=== PATIENT | male | born 1980 | race Two or more races ===

== ENCOUNTER 2020-01-25 05:18 | Inpatient (IN) | payer OTHER ==
[~2020-01-25] VITALS: Ht 167.6 cm; Wt 94.3 kg
[2020-01-25] VITALS (16 sets, daily range): BP systolic 63–132; BP diastolic 44–80
--- NOTE | 2020-01-25 06:38 | Anethesia Preoperative Eval ---
Anesthesia Pre-op PMH/ROS General Date of Evaluation: Jan 25, 2020 Time of Evaluation: 06:56 Anesthesiologist: Juanito ASA Score: ASA 2 Mallampati Score Class I : Soft palate, uvula, fauces, pillars visible Class II: Soft palate, uvula, fauces visible Class III: Soft palate, base of uvula visible Class IV: Only hard plate visible Mallampati Classification: Class II Surgeon: Rinku Diagnosis: Back Pain Surgical Procedure: Alif L5-S1, PSF L5-S1 Anesthesia History: none Family History: no anesthesia problems Allergies: Coded Allergies: No Known Allergies (Unverified , 01/24/20) Medications: see eMAR Patient NPO?: Yes Past Medical History Gastrointestinal/Genitourinary: Reports: other - GI Ulcer Neurologic/Psychiatric: Reports: depression/anxiety PSxH Narrative: Lipoma X 15 SX Anesthesia Pre-op Phys. Exam Physician Exam Last Vital Signs Date Time Temp Pulse Resp B/P (MAP) Pulse Ox O2 Delivery O2 Flow Rate FiO2 01/25/20 05:59 Room Air 01/25/20 05:51 98.2 71 18 132/80 (97) 98 Constitutional: NAD Neurologic: CN 2-12 intact Cardiovascular: RRR Respiratory: CTA Gastrointestinal: S/NT/ND Airway Exam Mallampati Score: Class II MO: full ROM: full Teeth: missing, intact Anesthesia Pre-op A/P Risk Assessment & Plan Assessment: ASA 2 Plan: GA, SED, GlideScope Status Change Before Surgery: No Pre-Antibiotics Dru Grams Ancef IV Given Within 1 Hr of Incision: Yes Time Given: 07:31 Cedric Solomon MD Jan 25, 2020 06:38
[2020-01-25] MEDS ORDERED: Lidocaine 1% MPF 10mg/ml 5ml ONE (06:41)
[2020-01-25] MEDS ORDERED: Sodium Chloride 10ml vial INJ ONE (06:41)
[2020-01-25] MEDS ORDERED: fentaNYL 100 mcg/2 mL IV ONE ×2 (06:42→08:33)
[2020-01-25] MEDS ORDERED: Lidocaine 1% Plain 30 ml INJ ONE ×3 (06:42→11:01)
[2020-01-25] MEDS ORDERED: Meperidine 25mg/1ml Inj (FOR RIGORS ONLY) IV PRN (06:45)
[2020-01-25] MEDS ORDERED: Midazolam 2mg/2ml Inj IVP PRN (06:45)
[2020-01-25] MEDS ORDERED: Atropine Sulfate 0.4mg/ml inj IVP PRN (06:45)
[2020-01-25] MEDS ORDERED: HYDROcodone/Acetamin 5/325 tab ORAL PRN ×2 (06:45→07:30)
[2020-01-25] MEDS ORDERED: Ketorolac 30mg Inj IV PRN ×2 (06:45)
[2020-01-25] MEDS ORDERED: HYDROcodone/Acetamin 7.5/325 tab ORAL PRN ×2 (06:45→07:30)
[2020-01-25] MEDS ORDERED: DiphenhydrAMINE 50mg/ml Inj IVP PRN (06:45)
[2020-01-25] MEDS ORDERED: LORazepam Inj 2mg/ml 1ml IV PRN (06:45)
[2020-01-25] MEDS ORDERED: fentaNYL 100 mcg/2 mL IV PRN (06:45)
[2020-01-25] MEDS ORDERED: Labetalol 5mg/ml 20ml vial IV PRN (06:45)
[2020-01-25] MEDS ORDERED: LR 1000ml 1,000 ML IVLG SCH (06:45)
[2020-01-25] MEDS ORDERED: Metoclopramide 10mg/2ml Inj IVP PRN ×2 (06:45→07:30)
[2020-01-25] MEDS ORDERED: Acetaminophen (Non formulary) 100 ML IV ONE (06:45)
[2020-01-25] MEDS ORDERED: Hydromorphone 0.5mg/0.5ml inj IVP PRN (06:45)
[2020-01-25] MEDS ORDERED: oxyCODONE HCL/Acetaminophen 5/325mg ORAL PRN (06:45)
[2020-01-25] MEDS ORDERED: EPINEPHrine 1mg/1ml Amp ONE (06:47)
[2020-01-25] MEDS ORDERED: Vancomycin 1gm vial IVPB ONE ×2 (06:47→09:45)
[2020-01-25] MEDS ORDERED: Heparin 5000 units/ml inj ONE (06:48)
[2020-01-25] MEDS ORDERED: Thrombin 5000 units TOPIC ONE (06:48)
[2020-01-25] MEDS ORDERED: Gelfoam Size TOPIC ONE ×2 (06:48→06:49)
[2020-01-25] MEDS ORDERED: Bupivacaine 0.5% Inj 30 ml vial INJ ONE (06:49)
[2020-01-25] MEDS ORDERED: Ropivacaine 5mg/ml Vial 30ml INJ ONE (06:49)
[2020-01-25] MEDS ORDERED: Bacitracin 50000 Units Vial ONE (06:49)
[2020-01-25] MEDS ORDERED: ceFAZolin sod 1 GM in NS 55 ML IVPB ONE (07:00)
[2020-01-25] MEDS ORDERED: NS Irrig 1000ml ONE (07:00)
[2020-01-25] MEDS ORDERED: Sterile Water Irrig 1000ml IRRIG ONE (07:00)
[2020-01-25] MEDS ORDERED: propofoL 1,000mg/100ml IV ONE (07:00)
[2020-01-25] MEDS ORDERED: LR 1000ml ONE (07:00)
[2020-01-25] MEDS ORDERED: Rocuronium Bromide 50mg/5ml Inj IV ONE (07:00)
[2020-01-25] MEDS ORDERED: Neostigmine 1mg/ml 10ml Inj ONE (07:00)
--- NOTE | 2020-01-25 07:23 | Pre-Procedure Note/Attestation ---
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 I attest that, if there was a reasonable possibility of needing a blood transfusion, the patient (or the patient's legal employee representative) was given the [place] [employer] [facility] standardized written summary, pursuant to the [place] Blood Safety Act ([place] Health and Safety Code # 1645, as amended). I attest that I re-evaluated the patient just prior to the surgery and that th ere has been no change in the patient's H&P, except as documented below: Murray Dobbs MD Jan 25, 2020 07:23
--- NOTE | 2020-01-25 07:25 | Brief Operative Note ---
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
[2020-01-25] MEDS ORDERED: Naloxone 0.4mg/ml Inj IVP PRN (07:30)
[2020-01-25] MEDS ORDERED: Morphine Sulfate 4mg/ml Inj (IV USE ONLY) IV PRN ×2 (07:30)
[2020-01-25] MEDS ORDERED: Morphine Sulfate 2mg/ml Inj(IV/IM USE ONLY) IV PRN (07:30)
[2020-01-25] MEDS ORDERED: HYDROmorphone 1mg/ml Carpuject IVP PRN (07:30)
[2020-01-25] MEDS ORDERED: Chloraseptic Spray 20mL Bottle ORAL PRN (07:30)
[2020-01-25] MEDS ORDERED: Milk of Magnesia 30ml Ud ORAL PRN (07:30)
[2020-01-25] MEDS ORDERED: Glycopyrrolate 0.2mg/ml 1ml Vial ONE (10:27)
--- NOTE | 2020-01-25 10:30 | Consultation ---
DATE OF CONSULTATION: 01/25/2020 VASCULAR SURGERY CONSULTATION CONSULTING PHYSICIAN: Saud Lu MD BRIEF SUMMARY: The patient is a 40-year-old male, who was admitted to undergo anterior lumbar interbody fusion of L5-S1 as determined by his spine surgeon, Dr. Murray Dobbs. Prior to today, the patient had received at his home my separate informed consent form, which was translated in Portuguese as well, which introduced me and explained my role in the approach for the anterior lumbar spine surgery. It also outlined the possible risks and complications including, but not limited to hemorrhage, need for blood transfusions, retrograde ejaculation, wound infection, bowel or ureter injury, arterial or venous injury or thrombosis, and the remote chance of , etc. The patient read the form, signed it, and brought it back to the hospital with him today. In addition, I telephoned the patient and briefly discussed the procedure with him. Today, he was seen in the preoperative holding area where the contents of the form were reviewed and any questions were answered. He was shown the site of the incision. He had palpable bilateral dorsalis pedis pulses. He was 5 feet 6 inches tall, weighing approximately 208 pounds giving him a BMI of 34. That consent was signed once again with a nurse witness and signature as well and then placed into the chart. He fully understood and wished to proceed. There were no contraindications and we would proceed with the proposed operation. Saud Lu M.D. DR: Naz JOB#: [id number] CC:
--- NOTE | 2020-01-25 10:45 | Operative Note - Dictated ---
DATE OF OPERATION: 01/25/2020 OPERATION: Muscle-sparing anterior abdominal retroperitoneal approach for anterior lumbar interbody fusion. CO-SURGEONS: Saud Lu MD, and Murray Dobbs MD ANESTHESIA: General. PREOPERATIVE DIAGNOSIS: Herniated disc with spondylolysis, L5-S1. POSTOPERATIVE DIAGNOSIS: Herniated disc with spondylolysis, L5-S1. DESCRIPTION OF PROCEDURE: Prior to surgery, the patient had received at his home my separate informed consent form, which was translated in Cameroonian as well, which introduced me and explained my role in the approach for the anterior lumbar spine surgery. It also outlined the possible risks and complications including, but not limited to hemorrhage, need for blood transfusions, retrograde ejaculation, wound infection, bowel or ureter injury, arterial or venous injury or thrombosis, and the remote chance of , etc. The patient read the form, signed it, and brought it back to the hospital with him today. In addition, I telephoned the patient where the procedure was discussed. Today, he was seen in the preoperative holding area where the contents of the form were reviewed and any questions were answered. He was shown the site of the incision. He had palpable bilateral dorsalis pedis pulses. That consent was signed once again with a nurse witness and signature as well and then placed into the chart. He fully understood and wished to proceed. A preoperative vascular surgery consultation report was dictated. The patient was taken into the operating room and placed in supine position. Using an endotracheal tube, he was placed under general anesthesia without difficulty. Abdomen was prepped and draped in the usual sterile manner. An appropriate time-out was obtained. A transverse incision was made in the left lower quadrant from the midline and carried down through the subcutaneous tissues down to the rectus fascia. Hemostasis was achieved using electrocautery. The rectus fascia was incised transversely and elevated off the anterior surface of the muscle for a distance of approximately 4 cm both caudad and cephalad. This would allow for retraction of the rectus muscle laterally later in the case in order to obtain direct anterior-posterior approach to the anterior surface of the spine. The inferior epigastric vessels were identified and preserved. Laterally, the retroperitoneal space was entered down to the left psoas muscle. The left ureter was identified and protected throughout the case. Several self-retaining retractors such as the Norma and Bookwalter were utilized to hold the abdominal wall and peritoneal contents in place while further dissection was carried out. Careful blunt dissection was carried out below the bifurcation of the iliac vessels with several medial branches of the iliac vein were taken between Hemoclips and transected. The middle sacral artery was taken between Hemoclips and transected. Careful blunt dissection was carried out to preserve the sympathetic chains laterally as well as the parasympathetic plexus, which lies anteriorly along the surface of the fifth lumbar vertebra. Further careful blunt dissection was utilized to expose the anterior surface of the multiple vertebral bodies and intervening disc space. Several retractor blades were now placed in all quadrants with the rectus muscle now retracted laterally, which allowed exposure and direct anterior-posterior approach to the anterior surface of the spine. The spine surgeon then proceeded to perform discectomy and fusion, which would be dictated in a separate report by the spine surgeon, Dr. Dobbs. Antibiotic irrigation had been carried out. Vancomycin powder was left in the wound. The integrity of the iliac vessels were then checked to make sure that there was no tear or thrombosis of the vein and that there was adequate flow through the artery with no evidence of spasm or thrombosis. A further check for hemostasis was made and the integrity of the ureter was verified. The peritoneum was allowed to return to its anatomical location and the anterior rectus sheath approximated using continuous running suture of #1 Vicryl. The subcutaneous tissues were irrigated using dilute Betadine solution as well as antibiotic solution and hemostasis noted to be achieved. Vancomycin powder was left in the wound. Plastic closure repair of the abdominal wound was continued using 2-0 Vicryl followed by skin approximation using continuous subcuticular suture of 4-0 Monocryl. Steri-Strips were applied. Dry sterile gauze and OpSite dressings were applied. The sponge, pad, needle, and instrument counts reported as correct. Estimated blood loss was less than 50 mL. There were no complications during this part of the procedure. At completion of this part of the procedure, the patient had maintenance of palpable bilateral dorsalis pedis pulses and the pulse oximeter registered 100% on the left foot. The patient will remain in the operating room to undergo posterior instrumentation by the spine surgeon. Saud Lu M.D. DR: Naz JOB#: [id number] CC:
[2020-01-25] MEDS ORDERED: Naloxone 0.4mg/ml Inj ONE (12:35)
--- NOTE | 2020-01-25 13:21 | Immediate Post-Op Evaluation ---
Immediate Post-Op Evalulation Immediate Post-Op Evalulation Procedure: Alif L5-S1, PSF L5-S1 Date of Evaluation: Jan 25, 2020 Time of Evaluation: 13:32 IV Fluids: 1100 Blood Products: 0 Estimated Blood Loss: 100 Urinary Output: 200 Blood Pressure Systolic: 107 Blood Pressure Diastolic: 72 Pulse Rate: 89 Respiratory Rate: 16 O2 Sat by Pulse Oximetry: 99 Temperature (Fahrenheit): 98.8 Pain Score (1-10): 2 Nausea: No Vomiting: No Complications 0 Patient Status: awake, reacts, patent, extubated, none Hydration Status: adequate Dru Grams Ancef IV Given Within 1 Hr of Incision: Yes Time Given: 07:31 Cedric Solomon MD Jan 25, 2020 13:21
--- NOTE | 2020-01-25 16:01 | Diagnostic Imaging Report ---
INDICATION: Pain, intraoperative follow back pain TECHNIQUE: Intraoperative imaging Fluoroscopy time: 1:15 seconds Total dose: 1.23 mGym2 Total number of images: 7 COMPARISON: None FINDINGS: Intraoperative images demonstrate a surgical tube projected at the level of the L5-S1 disc. Subsequent images document placement of anterior fusion hardware and posterior fusion hardware at this level. IMPRESSION: Intraoperative imaging, as described
[2020-01-25] MEDS: NS w/KCl 20mEq 1000ml 1,000 ML IV SCH (18:08)
[2020-01-25] MEDS: Docusate 100mg cap ORAL SCH (18:08)
[2020-01-25] MEDS: ceFAZolin sod 1 GM in D5W 55 ML IV SCH (18:08)
[2020-01-25] MEDS: HYDROcodone/Acetamin 7.5/325 tab ORAL PRN (20:12)
--- NOTE | 2020-01-25 22:15 | Operative Note - Dictated ---
DATE OF OPERATION: 01/25/2020 Stage 1 of 2. SURGEON: Murray Dobbs MD, Orthopaedic Spine Surgeon EXPOSURE SURGEON: Saud Lu MD ANESTHESIA: General endotracheal anesthesia. PREOPERATIVE DIAGNOSES: 1. Intractable back pain. 2. Intractable leg pain. 3. Worsening radiculopathy. 4. Weakness. 5. Herniated nucleus pulposus, L5-S1 herniation. 6. Neural foraminal stenosis, L5-S1 herniation. POSTOPERATIVE DIAGNOSES: 1. Intractable back pain. 2. Intractable leg pain. 3. Worsening radiculopathy. 4. Weakness. 5. Herniated nucleus pulposus, L5-S1 herniation. 6. Neural foraminal stenosis, L5-S1 herniation. PROCEDURES PERFORMED: 1. Radical anterior lumbar intervertebral L5-S1 discectomy. 2. Anterior lumbar interbody fusion using 8-degree PEEK cage size Nuvasive Brigade 14 mm and medium bone morphogenetic protein with 5 mL of allograft Aitkin putty and 8 mL of tisseal. 3. Anterior lumbar plating and fixation at L5-S1 using 4 screws of 25 mm length. 4. Anterior retroperitoneal exposure. 5. Supervision and interpretation of intraoperative fluoroscopy. 6. Supervision and interpretation of somatosensory-evoked potential and free running EMG monitoring. ESTIMATED BLOOD LOSS: mL COMPLICATIONS: None. INDICATIONS FOR THE PROCEDURE: The patient is a 40-year-old male who presents for intractable back pain and radiculopathy which is well documented in our clinical chart and records. We had a long discussion with Blayne regarding definitive surgical treatment options. We had a long discussion with the patient regarding the risks, alternatives, and benefits of procedure. Our description of the risks included a discussion in person as well as a signed consent which detailed all pertinent risks and the procedure itself. Briefly, our discussion included but was not limited to infection, bleeding, pseudarthrosis, spinal cord injury, neurovascular injury, dural tear, CSF leak, neuropathy, paralysis, permanent weakness/drop foot, paresthesias, blindness, palsy and weakness. The patient understood there may be a need for revision surgery or additional procedures. Approach-related complications including dysphonia, dysphagia, blindness, permanent vocal cord and neural injury, hematoma, swallowing and breathing difficulty; medical complications including liver, kidney, shock, and cardiopulmonary failure; anesthesia complications including , swelling, damage to the musculature, larynx , esophagus, trachea, blood vessels and muscles and lungs during this surgical procedure. Injury to deeper structures may be temporary or permanent. The patient understood these and elected to proceed. A written and verbal consent was given. We discussed the pros and cons of all the alternatives. We discussed the uncertainties associated with the decision. Afterwards I assessed the patients understanding and explored their preferences. All questions were answered and no guarantees were given. Medical clearance was obtained prior to surgery. INTRAOPERATIVE FINDINGS: At L5-S1, there was a tear and the disc herniation along the posterior aspect of the PLL, which was noted to on stage 1 anterior part of the procedure. This was noted after resection of the anterior portion of the disc. The disc itself was still spongy with appropriate disc height. There was no desiccation of the disc nor crumbled nature of the disc whatsoever. I appreciated no significant bone spurs anteriorly. Upon visualization of the posterior longitudinal ligament, there was a tear in the PLL on the right side of the neural foramina. The tear was approximately 15 degrees cephalad to caudad. This was mobilized with a Microsect 1 B curette and I noted there to be nuclear herniated fragments which were protruding posteriorly on the neural foramina predominantly on the right side. DESCRIPTION OF PROCEDURE: Under the benefit of general endotracheal anesthesia and with the assistance of the entire operative team, the patient was moved from the rde young onto the operative table in the supine position on a radiolucent frame. The head was secured and positioned appropriately. Bilateral arms were secured with Gel Pads and foam and all bony prominences were padded. The bilateral lower extremity SCD and LIOR hose were placed for DVT prophylaxis. A surgical timeout was called which corroborated our planned procedure. Preoperative antibiotics were administered within 30 minutes of the incision for prophylaxis. Using lateral radiography, the operative levels were delineated. An incision was marked based on our interpretation of lateral radiography and afterwards the body was prepped and draped in the usual sterile manner. The family was notified that we were ready to commence surgery and were called in the waiting room hourly for updates. An incision was based on our lateral fluoroscopic image to center the incision at the L5-S1 interspace. The wound was prepped and draped in the usual sterile fashion. Using a scalpel, a standard retroperitoneal exposure was performed by our vascular surgeon Dr. Saud Lu and this is delineated in a separate operative note. After appropriate exposure at the L5-S1 disc space, we next turned our attention towards our radical discectomy. This was performed in standard fashion first beginning with a gentle mobilization of all superficial soft tissue overlying the disc space with Kittners. After this was performed we marked our midline and confirmed our disc space on AP and lateral fluoroscopy. Next, using a 10 blade long-handled scalpel, the disc was resected from the endplates in a box discectomy technique. Next using Tate elevators the disc was mobilized off each endplate. After this, using a large Leksell rongeurs, the entire disc was removed from the intervertebral space. All residual disc and cartilagenous endplates were resected using a combination of small and medium curettage, pituitaries, size 4 and size 6 Kerrison rongeurs. Next, the endplates were distracted in a parallel fashion using the Walter hot baller and a 7.5 Thandle. At this point the PLL was resected using a small curette and a Kerrison 4 rongeur. Next the endplates were resected down to bleeding subchondral bone using a ring and box curette. For any residual bleeding which we encountered at this point, this was maintained and controlled with a combination of FloSeal, Gelfoam and bipolar cautery. Afterwards, Tisseel was used to seal the discectomy site dorsally. Next I then trialed the interspace for height, width and depth. This was confirmed on fluoroscopy and, once satisfied with our fit, we loaded and inserted an 8-degree PEEK cage size Nuvasive Brigade 14 mm with bone morphogenetic protein and with allograft [place] bone under AP and lateral fluoroscopy. AP and lateral fluoroscopy confirmed excellent placement at the L5-S1 interspace. Afterwards, we turned our attention towards plating from the Nuvasive Brigade Interlock system. This anterior lumbar plating and fixation at L5-S1 using 4 screws of 25 mm length. Final radiographs confirmed appropriate placement of all hardware, screws and our PEEK cages along with a baptist of the lumbar lordosis. Afterwards, Tisseel was used to seal the discectomy site ventrally. FloSeal and Zosyn antibiotics were placed directly on the anterior fusion site. The wounds were copiously irrigated with antibiotic impregnated saline. Afterwards, FloSeal was placed to address residual bleeding. Powdered antibiotics were directly poured into the wound to provide for direct antibiosis. Next, I turned my attention to closure. Fascial closure was performed with 1-0 Vicryl suture. Subcutaneous tissues were reapproximated with 2-0 Vicryl. The superficial subcutaneous skin was closed with a running Monocryl and Dermabond. Dressings consisted of Tegaderm and 4 x 4 gauze. The patient tolerated the procedure well and after discussion with our vascular surgeon and our anesthesiologist, we made the determination to proceed with stage 2 of 2 our posterior based approach. The details of stage 1 of the surgery were related to the patients family/representatives upon the conclusion of the procedure in the family waiting room. Stage 2 of 2. SURGEON: Murray Dobbs MD, Orthopaedic Spine Surgeon. EXPOSURE SURGEON: Saud Lu MD BENEFITS REPRESENTATIVE SURGEON: Saud Lu MD ANESTHESIA: General endotracheal anesthesia. PREOPERATIVE DIAGNOSES: 1. Intractable back pain. 2. Intractable leg pain. 3. Worsening radiculopathy. 4. Weakness. 5. Herniated nucleus pulposus, L5-S1 herniation. 6. Neural foraminal stenosis, L5-S1. POSTOPERATIVE DIAGNOSES: 1. Intractable back pain. 2. Intractable leg pain. 3. Worsening radiculopathy. 4. Weakness. 5. Herniated nucleus pulposus, L5-S1 herniation. 6. Neural foraminal stenosis, L5-S1. PROCEDURES PERFORMED: 1. Bilateral Torres laminectomy/Nava-Hooks osteotomy, and complete facetectomy at L5-S1. 2. L5-S1 posterolateral fusion using allograft bone, local autograft, and residual bone morphogenetic protein. 3. Percutaneous pedicle screw fixation using Synthes Emergent pedicle screws, size 40 mm x 6 mm, a total of 4 used the pedicle of L5 bilaterally and S1 bilaterally. 4. Confirmation of pedicle screws placement using neural monitoring. 5. Use of intraoperative microscope. 6. Supervision and interpretation of intraoperative fluoroscopy. 7. Supervision and interpretation of somatosensory-evoked potential and free running EMG monitoring. 8. Duraplasty L5S1 ESTIMATED BLOOD LOSS: mL COMPLICATIONS: None. This now delineates the second stage of the procedure. INTRAOPERATIVE FINDINGS: At L5, there was bilateral pars fracture. The pars fractures did not appear chronic. There were fresh sharp edges of the pars fracture, which made it difficult to resect given the sharp edges and their proximity to the nerves and thecal sac. This was resected without issue. However on resection of the spinous process itself, it appeared somewhat adhered to the thecal sac and on vertical removal, a small incidental 2 mm durotomy was noted. This was repaired with TF 4 Nurolon suture in a standard fashion with approximately 3 stitches and DuraGen afterwards without any untoward complications. DESCRIPTION OF PROCEDURE: Under the benefit of general endotracheal anesthesia and with the assistance of the entire operative team, the patient was moved from the radiolucent operative table in the prone position onto a Beny frame. The head was secured and positioned appropriately. Bilateral arms were secured with Gel Pads and foam and all bony prominences were padded. The bilateral lower extremity SCD and LIOR hose we replaced for DVT prophylaxis. A surgical timeout was called which corroborated our planned procedure. Preoperative antibiotics were administered within 30 minutes of the incision for prophylaxis. Using lateral radiography, the operative levels were delineated. An incision was marked based on our interpretation of anterior posterior and lateral radiography and afterwards the body was prepped and draped in the usual sterile manner. The family was notified that we were ready to commence surgery and were called in the waiting room hourly for updates. An incision was based on our anterior posterior and lateral fluoroscopic image to center the incision at the L5-S1 interspace. The wound was prepped and draped in the usual sterile fashion. Using a scalpel, a midline incision was made and the subcutaneous tissue was mobilized so that within the fascia two Qamar based incisions were made bilaterally focusing on his pedicle at L5-S1 through a percutaneous stab wound approach. All pedicles were cannulated in the exact same fashion for each level. This was performed in the following manner. The second incision was made slightly off midline and geared towards his L5-S1 interspace approached. Using Jamshidi needles under direct AP and lateral fluoroscopic visualization I approached the L5-S1 pedicles with Jamshidi needles making sure to leave clearance along the medial pedicle boundary/wall, and next we advanced our bilateral pedicle screw entry points under AP and lateral fluoroscopy at both our pedicles bilaterally. Next, percutaneous screws were loaded bilaterally. Screws were inserted in percutaneous fashion and afterwards these screws were stimulated. Next, a kilo was lordosed and placed percutaneously through the incision. Next, we turned our attention to our Naav-Hooks type osteotomy, facetectomy and decompression. This was performed at each level in the exact same fashion. Based on AP and lateral fluoroscopy, we centered this incision over the facet joints at L5 of the contralateral side. This was taken down through the skin and subcutaneous tissues until the overlying pars facet joints of L5-S1 were visualized under microscopic visualization. There was severe pressure on this neural foramina as palpated with the Slayden dental and a [place]chola ball probe. The pars was then visualized on the contralateral side and this was carefully resected along with the lamina and superior articular process using a Midas Gil AM8 drill bit. This was completely resected using a Nava-Hooks type osteotomy and medial laminar removal and facetectomy. At L5, there was bilateral pars fracture. The pars fractures did not appear chronic. There were fresh sharp edges of the pars fracture, which made it difficult to resect given the sharp edges and their proximity to the nerves and thecal sac. This was resected without issue. However on resection of the spinous process itself, it appeared somewhat adhered to the thecal sac and on vertical removal, a small incidental 2 mm durotomy was noted. This was repaired with TF 4 Nurolon suture in a standard fashion with approximately 3 stitches and DuraGen afterwards without any untoward complications. There was a significant amount of bleeding which we encountered at this point and this was maintained and controlled with a combination of FloSeal, Gelfoam and bipolar cautery. After complete resection of the facet joints, we noticed the lateral thecal sac margin and the relief of pressure off the neural elements . Next, I turned my attention to the stimulation of pedicle screws. All pedicle screws were stimulated with somatosensory evoked potentials ranging over 20 milliampere with no response. Afterwards percutaneous rods from the Synthes Emergent pedicle screw system were inserted and placed percutaneously and locking caps were placed. Final radiographs confirmed appropriate placement of all hardware, screws and our PEEK cages along with a baptist of the lumbar lordosis. The wounds were copiously irrigated with antibiotic impregnated saline. Afterwards, FloSeal was placed to address residual bleeding. Powdered antibiotics were directly poured into the wound to provide for direct antibiosis. Next I turned my attention to closure. Fascial closure was performed with 1-0 Vicryl suture. Subcutaneous tissues were reapproximated with 2-0 Vicryl. The superficial subcutaneous skin was closed with a running Monocryl and Dermabond. Dressings consisted of Tegaderm and 4 x 4 gauze. The patient tolerated the procedure well and will now be admitted to the spine floor for further observation. The details of the entire surgery were related to the patients family/representatives upon the conclusion of the procedure in the family waiting room. Murray Dobbs M.D. DR: CAMILA JOB#: [id number] CC: ADELA
[2020-01-26] VITALS: BP 104/67
[2020-01-26] MEDS: ceFAZolin sod 1 GM in D5W 55 ML IV SCH ×2 (00:29→09:04)
[2020-01-26 04:00] VITALS: BP 108/60
[2020-01-26] MEDS: NS w/KCl 20mEq 1000ml 1,000 ML IV SCH ×2 (05:22→14:33)
[2020-01-26] MEDS: HYDROcodone/Acetamin 7.5/325 tab ORAL PRN (05:33)
[2020-01-26 08:00] VITALS: BP 127/80
--- NOTE | 2020-01-26 08:12 | 48 Hour Post Anesthesia Eval ---
Post Anesthesia Evaluation Procedure: Alif L5-S1, PSF L5-S1 Date of Evaluation: Jan 26, 2020 Time of Evaluation: 08:11 Blood Pressure Systolic: 124 0: 76 Pulse Rate: 78 Respiratory Rate: 20 Temperature (Fahrenheit): 97.6 O2 Sat by Pulse Oximetry: 98 Airway: patent Nausea: No Vomiting: No Pain Intensity: 3 Hydration Status: adequate Cardiopulmonary Status: stable Mental Status/LOC: patient returned to baseline Follow-up Care/Observations: n/a Post-Anesthesia Complications: none Follow-up care needed: N/A Liban Jain MD Jan 26, 2020 08:12
[2020-01-26] MEDS: Docusate 100mg cap ORAL SCH ×2 (09:04→18:00)
[2020-01-26 12:00] VITALS: BP 121/81
[2020-01-26 16:00] VITALS: BP 110/60
--- NOTE | 2020-01-28 09:11 | Discharge Summary ---
Discharge Summary Discharge Summary _ DATE OF ADMISSION: 01/25/2020 DATE OF DISCHARGE: 01/26/2020 SURGEON: Dr. Murray Dobbs BRIEF HOSPITAL COURSE: Patient is a 40-year-old gentleman, who had intractable back pain and radiculopathy, with herniated nucleus pulposus and foraminal stenosis on L5-S1 was admitted and underwent anterior lumbar intervertebral L5-S1 discectomy. He tolerated procedure well. Surgery was uneventful. Post-operatively, patient was admitted for post-op care. He was placed on SCDs for DVT prophylaxis and was encouraged use of incentive spirometer. Patient was given pain management. He was seen by PT. Diet was advanced. Incision was clean, dry and intact. Patient was ambulating well with good pain control and was tolerating diet. Patient was eventually cleared for discharge home. FINAL DIAGNOSES: 1. Intractable back pain. 2. Intractable leg pain. 3. Worsening radiculopathy. 4. Weakness. 5. Herniated nucleus pulposus, L5-S1 herniation. 6. Neural foraminal stenosis, L5-S1 herniation. PROCEDURES PERFORMED: 1. Radical anterior lumbar intervertebral L5-S1 discectomy. 2. Anterior lumbar interbody fusion using 8-degree PEEK cage size Nuvasive Brigade 14 mm and medium bone morphogenetic protein with 5 mL of allograft Letts putty and 8 mL of tisseal. 3. Anterior lumbar plating and fixation at L5-S1 using 4 screws of 25 mm length. 4. Anterior retroperitoneal exposure. 5. Supervision and interpretation of intraoperative fluoroscopy. 6. Supervision and interpretation of somatosensory-evoked potential and free running EMG monitoring. (Refer to Operative Report) DISCHARGE DISPOSITION: Patient was discharged home. DISCHARGE MEDICATIONS: Refer to Medication Reconciliation Sheet. DISCHARGE INSTRUCTIONS: Post-op instructions given. Follow-up in a week. I have been assigned to complete a DC summary on this account, I was not involved with the patient's management.--SACHIN Lombardo Jacqueline Robles NP Jan 28, 2020 09:11
== END 2020-01-26 19:10 | disposition home or self-care (01) | DRG 460 ==
LOC: SDSOVERFLO 05:18 → 3E 17:04
PROC: 0SB40ZZ Excision of Lumbosacral Disc, Open Approach (ICD-10-PCS; principal; 2020-01-25 07:00)
PROC: 0SG30A0 Fusion of Lumbosacral Joint with Interbody Fusion Device, Anterior Approach, Anterior Column, Open Approach (ICD-10-PCS; principal; 2020-01-25 07:00)
PROC: 3E0U0GB Introduction of Recombinant Bone Morphogenetic Protein into Joints, Open Approach (ICD-10-PCS; principal; 2020-01-25 07:00)
DX: M51.17 Intervertebral disc disorders with radiculopathy, lumbosacral region (principal); M48.07 Spinal stenosis, lumbosacral region; V89.2XXS Person injured in unspecified motor-vehicle accident, traffic, sequela
CPT/HCPCS: 36415; 72020; 76000; 86850; 86900; 86901; 87081; 94003; 94150; J2405; J2710; U0002